=== PATIENT | female | born 1990 | race Caucasian/White ===

== ENCOUNTER 2018-06-05 18:49 | Emergency (ER) | payer BC ==
[~2018-06-05] VITALS: Ht 157.5 cm; Wt 53.5 kg
[2018-06-05 19:11] VITALS: BP 102/70
== END 2018-06-05 19:14 | disposition left against medical advice (07) ==
LOC: ER 18:51
DX: Z53.21 Procedure and treatment not carried out due to patient leaving prior to being seen by health care provider (principal); K08.89 Other specified disorders of teeth and supporting structures
CPT/HCPCS: A4606

== ENCOUNTER 2018-08-28 01:00 | Emergency (ER) | payer BC ==
[~2018-08-28] VITALS: Ht 157.5 cm; Wt 50.8 kg
--- NOTE | 2018-08-28 01:23 | NUR ---
PT ROSARIO FROM HOME C/O LOWER ABDOMINAL PAIN X4 HOURS. PT STATES SHE ACCIDENTALLY ATE SUNFLOWER OIL X4 HOURS [employer]UR [employer] AND IS ALLERGIC. PT DENIES N/V/D, DYSURIA, HEADACHE, DIZZINESS. PT AAOX4. RESPIRATIONS EVEN AND UNLABORED. SKIN WARM AND INTACT. PT APPEARS UNCOMFORTABLE. WILL CONTINUE TO MONITOR
--- NOTE | 2018-08-28 01:24 | NUR ---
MD AT BEDSIDE FOR EVALUATION
[2018-08-28] MEDS ORDERED: IV NS 0.9% 1,000 ML BAG IV ONE (02:00)
[2018-08-28] MEDS ORDERED: FAMOTIDINE/PF INJ 20 MG/2 ML VIAL IV ONE (02:00)
[2018-08-28] MEDS ORDERED: diphenhydrAMINE HCL 50 MG/ML VIAL IV ONE (02:00)
--- NOTE | 2018-08-28 02:03 | NUR ---
PT REQUESTING TO HOLD ON BENEDRYL AND PEPCID, STATES SHE WANTS TO SEE HOW SHE FEELS AFTER 2L NS. MD [place]
[2018-08-28 02:05] LABS: BASOPHILS % (AUTO) 0.3 % (0.0-2.0); HEMATOCRIT 35 % (33-45); HEMOGLOBIN 12.3 g/dL (11.5-14.8); LYMPHOCYTES % (AUTO) 11.8 % (20.0-44.0); MEAN CORPUSCULAR HGB CONC 35 g/dl (31.0-36.0); MEAN CORPUSCULAR VOLUME 90 fL (82-100); MONOCYTES # (AUTO) 0.6 /CMM (0.1-1.30); MONOCYTES % (AUTO) 6.5 % (2.0-12.0); NEUTROPHILS # (AUTO) 7.1 /CMM (1.8-8.9); NEUTROPHILS % (AUTO) 80.4 % (43.0-81.0); PLATELET COUNT (AUTO) 251 /CMM (150-450); RED BLOOD CELL COUNT(AUTO) 3.87 MIL/uL (4.0-5.2); WHITE BLOOD COUNT (AUTO) 8.8 K/uL (4.3-11.0)
[2018-08-28 02:12] LABS: CALCIUM, SERUM 8.5 mg/dL (8.5-10.1); POTASSIUM 3.6 mmol/L (3.5-5.1)
[2018-08-28 02:18] LABS: ALBUMIN 3.9 g/dL (3.4-5.0); BILIRUBIN,DIRECT 0.1 mg/dL (0.0-0.2); BILIRUBIN,TOTAL 0.2 mg/dL (0.2-1.0); TOTAL PROTEIN, SERUM 6.7 g/dL (6.4-8.2)
[2018-08-28 03:07] LABS: APPEARANCE,URINE Clear (CLEAR); BILIRUBIN,URINE Negative (NEGATIVE); BLOOD, URINE Large Ery/uL (NEGATIVE); COLOR,URINE Yellow (YELLOW); KETONES,URINE Trace (NEGATIVE); LEUKOCYTE ESTERASE ,URINE Negative (NEGATIVE); NITRITE, URINE Negative (NEGATIVE); PH,URINE 7.5 (5.0-8.0); PROTEIN,URINE Negative (NEGATIVE); UGLUCOSE Negative (NEGATIVE); UROBILINOGEN,URINE 0.2 EU/dL (0.2)
[2018-08-28 03:50] LABS: BACTERIA,URINE Rare /HPF (None Seen); RBC,URINE 51-80 /HPF (0-2); SQUAMOUS EPITHELIAL CELL,UR Few /HPF (None Seen)
--- NOTE | 2018-08-28 04:10 | NUR ---
Patient discharged to home in stable condition. Written and verbal after care instructions given. Patient verbalizes understanding of instruction. IV removed. Catheter intact and site benign. Pressure and 4x4 applied to site. No bleeding noted. Pt ambulatory with a steady gait
[2018-08-28 04:12] VITALS: BP 106/79
== END 2018-08-28 04:14 | disposition home or self-care (01) ==
LOC: ER 01:03
DX: T78.1XXA Other adverse food reactions, not elsewhere classified, initial encounter (principal); E86.0 Dehydration; F41.9 Anxiety disorder, unspecified; X58.XXXA Exposure to other specified factors, initial encounter
CPT/HCPCS: 36415; 80048; 80076; 81001; 83690; 85025; 96360; 99283; A4606; J7030; 81000-TC

== ENCOUNTER 2019-01-13 08:15 | Emergency (ER) | payer BC ==
[~2019-01-13] VITALS: Ht 157.5 cm; Wt 55.3 kg
--- NOTE | 2019-01-13 08:20 | NUR ---
PT BIB FAMILY C/O HEADACHE FOR 3 DAYS, PT IS AAOX4, NOT IN RESPIRATORY DISTRESS, V/S STABLE, KEPT RESTED AND COMFORTABLE, WILL CONTINUE TO MONITOR.
--- NOTE | 2019-01-13 08:28 | NUR ---
PT SEEN AND EXAMINED BY .
[2019-01-13] MEDS ORDERED: IV NS 0.9% 1,000 ML BAG IV ONE (08:30)
[2019-01-13] MEDS ORDERED: MORPHINE SULFATE INJ 2 MG/ML DISP.SYRIN IV ONE (08:30)
[2019-01-13] MEDS ORDERED: ONDANSETRON HCL/PF 4 MG/2 ML VIAL IVP ONE (08:30)
[2019-01-13] MEDS ORDERED: ONDANSETRON HCL/PF 4 MG/2 ML VIAL ONE (08:32)
[2019-01-13] MEDS ORDERED: MORPHINE SULFATE INJ 2 MG/ML DISP.SYRIN ONE (08:32)
--- NOTE | 2019-01-13 08:35 | NUR ---
IV LINE ESTABLISHED, BLODD DRAWNED AND SENT TO LAB.
[2019-01-13] MEDS ORDERED: KETOROLAC TROMETHAMINE 15 MG/ML VIAL ONE (08:36)
[2019-01-13 08:41] LABS: MEAN CORPUSCULAR VOLUME 92 fL (82-100)
[2019-01-13 08:48] LABS: CALCIUM, SERUM 9.5 mg/dL (8.5-10.1); POTASSIUM 3.4 mmol/L (3.5-5.1)
[2019-01-13 08:52] LABS: EOSINOPHILS % (AUTO) 1.6 % (0.0-6.0); HEMATOCRIT 38 % (33-45); HEMOGLOBIN 13.3 g/dL (11.5-14.8); LYMPHOCYTES # (AUTO) 1.6 /CMM (0.8-4.8); LYMPHOCYTES % (AUTO) 33.1 % (20.0-44.0); MEAN CORPUSCULAR HGB CONC 35 g/dl (31.0-36.0); MONOCYTES # (AUTO) 0.3 /CMM (0.1-1.30); MONOCYTES % (AUTO) 7.2 % (2.0-12.0); NEUTROPHILS # (AUTO) 2.7 /CMM (1.8-8.9); NEUTROPHILS % (AUTO) 57.1 % (43.0-81.0); PLATELET COUNT (AUTO) 280 /CMM (150-450); RED BLOOD CELL COUNT(AUTO) 4.15 MIL/uL (4.0-5.2); WHITE BLOOD COUNT (AUTO) 4.8 K/uL (4.3-11.0)
[2019-01-13 08:54] LABS: BILIRUBIN,DIRECT 0.1 mg/dL (0.0-0.2); BILIRUBIN,TOTAL 0.5 mg/dL (0.2-1.0); TOTAL PROTEIN, SERUM 7.1 g/dL (6.4-8.2)
[2019-01-13] MEDS ORDERED: KETOROLAC TROMETHAMINE INJ 30 MG/ML VIAL IV ONE (09:00)
[2019-01-13 09:49] VITALS: BP 107/55
--- NOTE | 2019-01-13 09:49 | NUR ---
IV removed. Catheter intact and site benign. Pressure and 4x4 applied to site. No bleeding noted. Patient discharged to home in stable condition. Written and verbal after care instructions given. Patient verbalizes understanding of instruction.
== END 2019-01-13 09:51 | disposition home or self-care (01) ==
LOC: ER 08:15
DX: R51 Headache (principal); Z88.0 Allergy status to penicillin
CPT/HCPCS: 36415; 80048; 80076; 84702; 85025; 85730; 96374; 96375; 99283; J1885; J2405; J7030; J2270

== ENCOUNTER 2019-04-29 23:14 | Emergency (ER) | payer BC ==
[~2019-04-29] VITALS: Ht 157.5 cm; Wt 52.2 kg
--- NOTE | 2019-04-29 23:20 | NUR ---
PT AAOX4. AMBULATORY. PT C/O BAD MIGRAINE HEADACHE WITH NAUSEA SINCE NOON. PT PLACED ON MONITOR AND PULSE OX. RR EVEN AND UNLABORED. VSS. NO ACUTE DUITRESS NOTED.
[2019-04-29] MEDS ORDERED: METOCLOPRAMIDE HCL 10 MG/2 ML VIAL ONE (23:44)
[2019-04-29] MEDS ORDERED: SUMATRIPTAN SUCCINATE 6 MG/0.5 ML VIAL SQ ONE (23:44)
[2019-04-30] MEDS ORDERED: SUMATRIPTAN SUCCINATE 6 MG/0.5 ML VIAL SQ ONE
[2019-04-30] MEDS ORDERED: METOCLOPRAMIDE HCL 10 MG/2 ML VIAL IV ONE
[2019-04-30] MEDS ORDERED: IV NS 0.9% 1,000 ML BAG IV ONE
--- NOTE | 2019-04-30 00:05 | NUR ---
Patient is resting comfortably in bed with eyes closed. Easily aroused.
--- NOTE | 2019-04-30 01:21 | NUR ---
Pt verbalized she will take Maxalt when she gets home. Patient discharged to home in stable condition. Verbal after care instructions given. Patient verbalizes understanding of instruction. IV removed. Catheter intact and site benign. Pressure and 4x4 applied to site. No bleeding noted. pt ambulatory with a steady gait.
[2019-04-30 02:27] VITALS: BP 128/82
== END 2019-04-30 01:30 | disposition home or self-care (01) ==
LOC: ER 23:19
DX: G43.909 Migraine, unspecified, not intractable, without status migrainosus (principal); Z88.0 Allergy status to penicillin
CPT/HCPCS: 99283; J2765; J3030; J7030